=== PATIENT | male | born 1980 | race African-American/Black ===

== ENCOUNTER 2017-08-10 02:17 | Emergency (ER) | payer BC ==
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
== END 2017-08-10 03:25 | disposition home or self-care (01) ==
LOC: ER 02:17
DX: T22.20XA Burn of second degree of shoulder and upper limb, except wrist and hand, unspecified site, initial encounter (principal)
CPT/HCPCS: 99284; 16020; 96372; J1885; Z7502